=== PATIENT | male | born 1980 | race Caucasian/White ===

== ENCOUNTER 2024-04-26 12:11 | Emergency (ER) | payer OTHER, SELFPAY ==
[2024-04-26 12:13] VITALS: BP 125/80
[2024-04-26] MEDS: ERYTHROMYCIN 0.5% OPHTHALMIC OINTMENT 1 APPLIC OPHTH (14:49)
--- NOTE | 2024-04-26 14:54 | ED.GENMED ---
History of Present Illness
General
Chief Complaint: Eye Problems
Source: patient
Exam Limitations: none
Time Seen by Provider: 04/26/24 13:12
Nursing documentation reviewed up to this point in time: agreed with
Travel History
Have you had any contact with someone who has COVID-19?: No
Do you have any symptoms of coronavirus? Fever > 100 degrees, chills, cough, shortness of breath, sore throat, loss of taste or smell, muscle aches, or headache?: No
History of Present Illness
History of Present Illness:
44-year-old male without significant past medical history presenting to the emergency department today with concerns of a carbo boxidine in the left eye he felt pain to the area and had some blurred vision and presented to the ER denies additional
injuries or is. Does not wear any corrective lenses.
Review of Systems
Review of Systems
Allergies reviewed?: Yes
All Other Systems: ROS reviewed and negative except as documented in HPI and ROS
Phy Exam
Physical Exam
Physical Exam:
GENERAL: Alert , in no apparent distress
EYE: Corneal abrasion to the 12:00 portion of the cornea roughly 2 x 1 cm in total size no foreign body seen explored with fluorescein normal visual acuity pupils equal and reactive
NECK: Supple, no significant adenopathy.
ENT: o/p clr, mmm.
CARDIAC: Regular rate and rhythm .
LUNGS: Clear breath sounds bilaterally, no acute respiratory distress, no wheezes/rales/rhonchi
ABDOMEN: Soft, without focal tenderness, no r/g, no cvat
NEUROLOGICAL: Alert and oriented, no focal neuro deficits
SKIN: Warm and dry, skin intact.
MUSCULOSKELETAL: No edema, well perfused.
PSYCH: Normal and appropriate interaction.
Course
Orders/Labs/Results
Orders:
Orders
04/26/24 14:42
Erythromycin (Ilotycin) [Erythromycin 0.5% Ophthalmic Ointment] See Dose Instructions OPHTH NOW STA
04/26/24 14:45
Fluorescein Sodium [Ful-Mandi] 1 mg .ROUTE .STK-MED ONE
04/26/24 14:47
Tetracaine HCl [Tetracaine 0.5% Ophthalmic Solution] 1 drop .ROUTE .STK-MED ONE
Vital Signs
Initial and Last Documented VS:
Initial Vital Signs
Temp Pulse Resp BP Pulse Ox
98.1 F 69 18 125/80 99
04/26/24 12:13 04/26/24 12:13 04/26/24 12:13 04/26/24 12:13 04/26/24 12:13
Last Documented Vital Signs
Temp Pulse Resp BP Pulse Ox
98.1 F 69 18 125/80 99
04/26/24 12:13 04/26/24 12:13 04/26/24 12:13 04/26/24 12:13 04/26/24 12:13
MDM/Problems Addressed
MDM/Problems Addressed:
44-year-old male presenting to the emergency department today with concerns of Carboxine him in the left eye prior to arrival. Patient was found to have a corneal abrasion here no additional concerning findings. Was started on erythromycin and
given information for ophthalmology follow-up. Return precautions given.
*Critical Care Note
Total Time (30-74mins, 75-104mins- exclusive of procedures): Not Applicable
ED Attending Note
-
Portions of this chart may have been created with voice recognition software.� Occasional wrong word or��sound alike� substitutions may have occurred due to the inherent limitations of voice recognition software.
Discharge Plan
Departure
Patient Disposition: Home (Routine Discharge)
Date of Disposition: 04/26/24
Time of Disposition: 14:55
Patient with high blood pressure during this ER visit?: No
Condition: Good
Covid-19: Not Applicable
Discharge Problem:
Corneal abrasion
Instructions: Corneal Abrasion (DC)
Referrals:
Anais Gale DO [Family Provider] -
aKllie Fernandez MD [Active] - Follow up in 2-3 days
Activity Restrictions/Additional Instructions:
You came to the emergency department today with a corneal abrasion. Please use the erythromycin 3-4 times daily to the affected eye and follow-up closely with ophthalmology. Return to the emergency department for any worsening, new or concerning
symptoms.
Interventions
Interventions:
*Risk Screen - Suicide Last Done: 04/26/24 13:06
*Neglect/Abuse Screening Last Done: 04/26/24 13:06
*ED COVID-19 Vaccine History Last Done: 04/26/24 12:13
Discharge Date and Time
Print Language: CZECH
== END 2024-04-26 15:06 | disposition home or self-care (01) ==
LOC: EMR 12:11
PROVIDERS: EMERGENCY PHYSICIAN Emergency Medicine; FAMILY PHYSICIAN Family Medicine
DX: S05.02XA Injury of conjunctiva and corneal abrasion without foreign body, left eye, initial encounter (principal); X58.XXXA Exposure to other specified factors, initial encounter
CPT/HCPCS: 99283